=== PATIENT | male | born 1975 | race Caucasian/White ===

== ENCOUNTER 2017-01-30 07:37 | Day surgery (SDC) | payer OTHER ==
[~2017-01-30] VITALS: Ht 172.7 cm; Wt 74.8 kg
[2017-01-30 08:13] VITALS: BP 122/78
[2017-01-30 10:38] VITALS: BP 121/78
== END 2017-01-30 11:55 | disposition home or self-care (01) ==
LOC: DS 07:37 → GI 09:30 → OR 09:30 → DS 11:55
PROVIDERS: Internal Medicine Gastroenterology
PROC: 0DJD8ZZ Inspection of Lower Intestinal Tract, Via Natural or Artificial Opening Endoscopic (ICD-10-PCS; principal; 2017-01-30 09:30)
DX: K57.30 Diverticulosis of large intestine without perforation or abscess without bleeding (principal); K64.8 Other hemorrhoids
CPT/HCPCS: 45378; J1200; J1610; J2250; J2310; J3010; J3490